=== PATIENT | male | born 1960 | race Caucasian/White ===

== ENCOUNTER 2016-04-26 21:36 | Emergency (ER) | payer OTHER ==
[2016-04-26] MEDS ORDERED: Ondansetron INJ* 2 MG/ML VIAL IV ONE (22:26)
[2016-04-26] MEDS ORDERED: Morphine INJ* 2 MG/ML 1 ML CARPUJECT IV ONE (22:27)
[2016-04-26] MEDS ORDERED: NS 0.9% 1000 ML* 1,000 ML IV ONE (22:43)
--- NOTE | 2016-04-26 23:32 | ED ---
Adult Trauma - HPI Summary HPI Summary: 56 M presents with multiple trauma s/p falling down the stairs. He admits to drinking and states he feel down a flight a stairs and admits to LOC. He is nauseous but denies any vomiting. He was very confused s/p the incident. He admits to a headache. He also admits to left sided rib pain. He denies any abdominal or neck pain or any extremity pain. Pain is worst with movement. He denies any SOB or tachycardia. - History of Current Complaint Chief Complaint: EDChestWallPain Stated Complaint: FALL DOWN STAIRS,HEAD INJURY-ETOH Time Seen by Provider: 04/26/16 21:55 Pain Intensity: 8 - Allergy/Home Medications Allergies/Adverse Reactions: Allergies Allergy/AdvReac Type Severity Reaction Status Date / Time Valproic Acid Allergy Intermediate Hives Verified 12/28/12 21:12 [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 Negative: Abdominal Pain, Vomiting Positive: Headache All Other Systems Reviewed And Are Negative: Yes Physical Exam Triage Information Reviewed: Yes Vital Signs On Initial Exam: Initial Vitals Temp Pulse Resp BP Pulse Ox 96.6 F 67 18 139/89 100 04/26/16 21:38 04/26/16 21:38 04/26/16 21:38 04/26/16 21:38 04/26/16 21:38 Vital Signs Reviewed: Yes Appearance: Positive: Well-Appearing Skin: Positive: Warm, Dry Head/Face: Positive: Normal Head/Face Inspection, Other - no step off, raccoon eyes or reyes sign Eyes: Positive: Normal, EOMI, SONA, Conjunctiva Clear ENT: Positive: Normal ENT inspection, Pharynx normal, TMs normal Neck: Positive: Supple, Nontender Respiratory/Lung Sounds: Positive: Clear to Auscultation, Breath Sounds Present , Other - tender to palpation of left ribs 8-12 on lateral aspect Cardiovascular: Positive: Normal, RRR Abdomen Description: Positive: Soft, Other: - tenderness to LUQ, no rebound tenderness Bowel Sounds: Positive: Present Musculoskeletal: Positive: Strength/ROM Intact - extremities Neurological: Positive: CN Intact II-III - Dora Coma Scale Coma Scale Total: 15 Diagnostics - Vital Signs Vital Signs Temp Pulse Resp BP Pulse Ox 04/26/16 22:38 15 04/26/16 22:05 64 99 04/26/16 22:04 138/88 04/26/16 21:38 96.6 F 67 18 139/89 100 - Laboratory Result Diagrams: 04/26/16 22:15 04/26/16 22:15 Lab Statement: Any lab studies that have been ordered have been reviewed, and results considered in the medical decision making process. - CT brain and neck CT Interpretation: No Acute Changes - no acute intracranial abdnomality, no bleed, prominent Virchow-Bradley, negative for fracture or malaligment, c5-c6 disc bulding possibly with a right paramedian herniated component indenting anteroir aspect of canal and cord, cannot determine if disc herniation realted to trauma or not CT Interpretation Completed By: Radiologist chest, ab, pelvis CT Interpretation: Positive (See Comments) - positive for fracutre of left 7th rib and ninth rib laterally, minor pulmonary contusion and pleural injury adjacent to left ninth rib (small traumactic pleural blebs adjacent to fracture , no gross pneumothorac or pneumomediastinum, negtaive fo abdominal pelvic visceral injury CT Interpretation Completed By: Radiologist Adult Trauma Course/Dx - Course Course Of Treatment: 56 M presents with multiple injuries s/p fall down the stairs and was intoxicated at the time. admits to LOC and nausea, left sided rib pain, denies any abdominal pain but on exam has tenderness to LUQ, CT head and neck which was normal, u/a showed no blood, CT chest/ab: 7th anad 9th rib fracture with minor pulmonary contusion and pleural injury adjace to ninth rib, discussed with dr denis who stated patient should be transferred, explained results to patient who refused to be transferred stating would like to go home and will return if develop racing heart or SOB, explained danger of leaving without going to trauma center and patient understands and still would like to go home, will have follow up with pulmonology, vitals stable at d/c, patient agrees with plan - Diagnoses Differential Diagnosis/HQI/PQRI: Positive: Abrasion(s), Contusion(s), Fracture Provider Diagnoses: Fall down stairs, Head injury, Rib fractures, Pulmonary contusion Discharge - Discharge Plan Condition: Stable Disposition: HOME Prescriptions: oxyCODONE/Acetamin 5/325 MG* [Percocet 5/325 TAB*] 1 tab PO Q6H PRN #20 tab MDD 4 PRN Reason: Pain Patient Education Materials: Pulmonary Contusion (ED), Rib Fracture (ED), Head Injury (ED) Referrals: Ferdinand Méndez MD [Primary Care Provider] - Lissette Jones MD [Medical Doctor] - Additional Instructions: Return to ED if develop racing heart, shortness of breath, cough, fever or any new or worsening symptoms Take deep breath throughout the day and use incentive spirometer to prevent pneumonia Follow up with primary and pulmonology within 3 days Increase fiber intake Take narcotic every 6 hours as needed for pain
[2016-04-26 23:42] LABS: Hematocrit 41 % (42-52); Hemoglobin 13.9 g/dl (14.0-18.0); Mean Corpuscular HGB Conc 34 g/dl (31-36); Mean Corpuscular Hemoglobin 32 pg (27-31); Mean Corpuscular Volume 95 fL (80-94); Mean Platelet Volume 9 um3 (7.4-10.4); Red Cell Distribution Width 13 % (10.5-15)
[2016-04-26] MEDS ORDERED: Ketorolac INJ* 30 MG/ML 1 ML VIAL IV PUSH ONE (23:48)
[2016-04-26 23:56] LABS: BUN/Creatinine Ratio 11.4 (8-20); Calcium 9.2 mg/dL (8.6-10.3); EGFR African American 131.4 (>60); EGFR Non-African American 102.2 (>60); Globulin 2.4 g/dL (2-4); Potassium 3.7 mmol/L (3.5-5.0); Total Bilirubin 0.6 mg/dL (0.2-1.0); Total Protein 6.4 g/dL (6.4-8.9)
[2016-04-27] MEDS ORDERED: Iohexol 300* (CONTRAST) 10 ML SDV IV ONE (00:53)
[2016-04-27 01:18] LABS: Urine Bilirubin Negative (Negative); Urine Glucose Negative (Negative); Urine Nitrite Negative (Negative)
[2016-04-27] MEDS ORDERED: Morphine INJ* 4 MG/ML 1 ML CARPUJECT IV ONE (01:55)
[2016-04-27] MEDS ORDERED: oxyCODONE/Acetamin 5/325 MG* TAB PO ONE (02:53)
[2016-04-27 03:16] VITALS: BP 150/78
--- NOTE | 2016-04-27 07:35 | RAD ---
INDICATION: Loss of consciousness, intoxicated. COMPARISON: There are no prior studies available for comparison. TECHNIQUE: Contiguous axial sections of the brain were obtained from the skull base to the vertex without contrast. FINDINGS: The ventricles, cisterns and sulci are within normal limits. There is a CSF density present in the left temporal lobe inferior to the basal ganglia most consistent with a prominent perivascular space. No other focal abnormalities or mass effect are seen. There is no evidence for hemorrhage. No significant focal osseous abnormality is seen. The visualized portion of the paranasal sinuses and mastoid air cells appear clear. IMPRESSION: NO EVIDENCE FOR ACUTE INTRACRANIAL ABNORMALITY.
--- NOTE | 2016-04-27 07:38 | RAD ---
INDICATION: Fall. Neck injury. COMPARISON: None TECHNIQUE: Noncontrast axial source images was performed from the skull base to the thoracic inlet. Coronal and and sagittal reformatted images were generated. FINDINGS: Vertebrae: There is no fracture or acute focal bony lesion. There are minor arthritic changes with minor narrowing about a some process spurring C3-C4 and C5-C6 with minor anterior vertebral spurring and minor narrowing at C5-C6 with anterior vertebral spur formation and minimal uncinate process spurring. Alignment: The craniocervical junction appears normal. The cervical vertebrae are normally aligned. Central Canal: There is a small central protrusion at C3-C4 and there is broad-based bulging at C5-C6 in addition to a broad-based right paracentral disc. MR imaging is a more sensitive method to evaluate the canal and foramina. Intervertebral disc spaces: The disc spaces are maintained. Brain: The visualized brain appears unremarkable. Soft tissues: The visualized soft tissue elements of the neck are unremarkable. The prevertebral soft tissues appear normal. The lung apices are clear. IMPRESSION: MINOR DEGENERATIVE CHANGES. RIGHT PARACENTRAL CENTRAL DISC HERNIATION C5-C6. SUGGEST MR IMAGING INDICATED.
--- NOTE | 2016-04-27 08:18 | RAD ---
INDICATION: Fall. Chest and abdominal pain. COMPARISON: None TECHNIQUE: Axial source images were obtained from the thoracic inlet to the symphysis pubis following administration of100 mL Omnipaque 300 . Coronal and sagittal reconstructed images were acquired. CHEST FINDINGS: Neck/thyroid: The visualized neck to include the thyroid appear normal. Chest wall: There is a mildly displaced posterior left seventh rib fracture and there is a nondisplaced lateral ninth rib fracture. There is a concave appearance superior endplate of T9. This may be chronic. There is no paravertebral edema There is no supraclavicular, infraclavicular, or axillary lymphadenopathy. Lungs : There are no pulmonary parenchymal masses or infiltrates. There is a tiny pulmonary contusion about the left ninth rib fracture. There is no pneumothorax. The pulmonary interstitium appears normal. There are no endobronchial lesions. Cardiomediastinal structures: The heart is normal in size. There is no pericardial effusion. There is no evidence of aortic aneurysm or dissection. The pulmonary vessels appear normal. There is no mediastinal or hilar adenopathy. There is a patulous GE junction. There is a small amount of air within the mildly dilated esophagus. Pleura : There are no pleural-based masses or effusions. ABDOMINAL/PELVIC FINDINGS: Liver: The liver is normal in size. There are no masses. There is no ductal dilatation. Gallbladder: The gallbladder is partially contracted. There are no specific CT abnormalities. Spleen: The spleen is normal in size. There are no masses. Pancreas: There is no evidence of pancreatic mass or ductal dilatation. Adrenal glands: There is no evidence of adrenal mass. Kidneys: The kidneys are normal in size and position. There are prompt nephrograms and there is prompt excretion bilaterally. There are no renal parenchymal masses. There is no evidence of nephrolithiasis. Adenopathy: There is no evidence of adenopathy by size criteria. Fluid collections: There are no free or localized fluid collections. Vessels:The aorta and IVC appear normal GI tract: There is limited evaluation. No oral contrast was administered. There are no acute CT bowel findings. There is no obstruction. The stomach and small bowel appear mostly normal. The lower GI tract is remarkable for scattered diverticula. The appendix is visualized and appears normal. Pelvic organs: The prostate and seminal vesicles appear normal Bladder: There are no bladder masses. Abdominal and pelvic soft tissues: The extraperitoneal abdominal and pelvic soft tissues appear normal.. Osseous structures: There are no acute osseous findings. IMPRESSION: 1. Left seventh and ninth rib fractures. No pneumothorax. Minimal associated pulmonary contusion at the level of the ninth rib fracture. Mild concave appearance of the superior plate of T9 is technically age indeterminate but may be chronic. 2. No CT evidence of traumatic injury to the solid viscera. No free fluid.
== END 2016-04-27 03:20 | disposition home or self-care (01) ==
LOC: ED 21:36
DX: S09.90XA Unspecified injury of head, initial encounter (principal); S22.42XA Multiple fractures of ribs, left side, initial encounter for closed fracture; S27.321A Contusion of lung, unilateral, initial encounter; F17.210 Nicotine dependence, cigarettes, uncomplicated; J45.909 Unspecified asthma, uncomplicated; W10.9XXA Fall (on) (from) unspecified stairs and steps, initial encounter; Y92.9 Unspecified place or not applicable
CPT/HCPCS: 36415; 70450; 71260; 72125; 74177; 80053; 81003; 85025; 96360; 96365; 96374; 96375; 99285; A9270-GY; J1885; J2270; J2405; Q9967

== ENCOUNTER 2017-10-12 20:46 | Emergency (ER) | payer OTHER ==
[2017-10-12 21:32] VITALS: BP 107/69
--- NOTE | 2017-10-12 22:08 | RAD ---
INDICATION: Right great toe ecchymosis after kicking a door TECHNIQUE: 3 views of the right great toe were obtained. FINDINGS: The visualized bones are normal alignment. Joint spaces appear maintained. No fracture is seen. IMPRESSION: NO EVIDENCE FOR FRACTURE. IF THE PATIENT'S SYMPTOMS PERSIST RECOMMEND FOLLOW-UP IMAGING.
--- NOTE | 2017-10-12 22:43 | UC ---
William Westbrook Rebecca, scribed for Ailyn Jiménez MD on 10/12/17 at 2221 . Lower Extremity/Ankle HPI - HPI Summary HPI Summary: Pt is a 57 y/o M who presents to [facility] c/o R great toe pain and bleeding with his primary concern being the bleeding. Yesterday, he accidentally kicked a door with his R great toe, resulting in immediate bruising. 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 Suspects that his toenail is loose. Associated pain was previously worse, and is currently mild, ranked 3/10. He has not taken any medications for the pain. Denies numbness, tingling. No PMHx DM. Last Tetanus vaccination was within 10 years. - History of Current Complaint Chief Complaint: UCLowerExtremity Stated Complaint: TOE INJURY Time Seen by Provider: 10/12/17 22:17 Hx Obtained From: Patient Onset/Duration: Lasting Days - Since yesterday, Still Present Severity Currently: Mild Pain Intensity: 3 Pain Scale Used: 0-10 Numeric Aggravating Factor(s): Nothing Alleviating Factor(s): Nothing Able to Bear Weight: Yes - Allergies/Home Medications Allergies/Adverse Reactions: Allergies Allergy/AdvReac Type Severity Reaction Status Date / Time divalproex sodium Allergy Hives Verified 10/12/17 21:33 [From Depakote] Home Medications: Home Medications Disulfiram TAB* [Antabuse 250 MG TAB*] 250 mg PO DAILY 10/12/17 [History Confirmed 10/12/17] Gabapentin CAP(*) [Neurontin 300 CAP(*)] 300 mg PO BID 10/12/17 [History Confirmed 10/12/17] Naltrexone TAB* 50 mg PO DAILY 10/12/17 [History Confirmed 10/12/17] PMH/Surg Hx/FS Hx/Imm Hx - Additional Past Medical History Additional PMH: NEGATIVE PMHx: Anticoagulant therapy, DM Cardiovascular History: Atrial Fibrillation Respiratory History: Asthma Other History Of: Negative For: Anticoagulant Therapy - Surgical History Surgical History: Yes Surgery Procedure, Year, and Place: bilat fingertips - Family History Known Family History: Positive: Cardiac Disease - Social History Alcohol Use: None Alcohol Amount: at least 12pack per day Substance Use Type: None Smoking Status (MU): Former Smoker Review of Systems Constitutional: Negative Skin: Bruising - R great toe, Other - R great toe pain and bleeding Eyes: Negative ENT: Negative Respiratory: Negative Cardiovascular: Negative Gastrointestinal: Negative Genitourinary: Negative Motor: Negative Neurovascular: Negative Musculoskeletal: Negative Neurological: Negative Psychological: Negative All Other Systems Reviewed And Are Negative: Yes - Comments Additional Review of Systems Comments: NEGATIVE: Numbness, tingling Physical Exam Vital Signs: Initial Vital Signs Temp 98.1 F 10/12/17 21:25 Pulse 68 10/12/17 21:25 Resp 16 10/12/17 21:25 BP 107/69 10/12/17 21:25 Pulse Ox 100 10/12/17 21:25 Diagnostics - Radiology Toe XR Xray Interpretation: No Acute Changes - NO EVIDENCE FOR FRACTURE. IF THE PATIENT'S SYMPTOMS PERSIST RECOMMEND FOLLOW-UP IMAGING. Physician reviewed this report. Radiology Interpretation Completed By: Radiologist Lower Extremity Course/Dx - Course Course Of Treatment: Patient medications and allergies reviewed this visit. Discharge - Sign-Out/Discharge Documenting (check all that apply): Discharge/Admit/Transfer - Discharge - Discharge Plan Referrals: Ferdinand Méndez MD [Primary Care Provider] - The documentation as recorded by the William arnett Rebecca accurately reflects the service I personally performed and the decisions made by Tino escalante Laura, MD.
== END 2017-10-12 23:00 | disposition home or self-care (01) ==
LOC: UCEAST 20:46
DX: S99.921A Unspecified injury of right foot, initial encounter (principal); J45.909 Unspecified asthma, uncomplicated; Z88.8 Allergy status to other drugs, medicaments and biological substances; W22.09XA Striking against other stationary object, initial encounter; Y92.9 Unspecified place or not applicable; Z87.891 Personal history of nicotine dependence
CPT/HCPCS: 99213; G0463

== ENCOUNTER 2018-01-04 12:42 | Emergency (ER) | payer OTHER ==
[2018-01-04 13:21] VITALS: BP 127/82
--- NOTE | 2018-01-04 13:35 | UC ---
Throat Pain/Nasal Saqib HPI - HPI Summary HPI Summary: Patient is a 57 y/o male who presents to the c/o sore throat. He states his girlfriend has strep throat with bad fevers and was on a 10 day antibiotics course. Patient was taking care of her and was in close contact with her, sleeping in the same bed. However, she still has symptoms after finishing the course. This morning he woke up with a sore throat and sinus congestion. He also notes that his right tonsil is enlarged, which is not unusual for him, and his left nostril is irritated. Patient has chronic tonsil issues, and has not had them removed. He denies any ear pain. Patient always has allergies and states they have been acting up lately, since hes been petting cats and had dairy last night. He takes Zyrtec and uses an inhaler for these symptoms. He works as a mcgrath and a musician. Patient is an alcoholic, and hasnt had a drink in 9 months. He also recently quit smoking. Patient has a prior history of TB as a child. He has not taken any OTC medications for his symptoms. Patient s medication reviewed this visit. - History of Current Complaint Chief Complaint: UCGeneralIllness Stated Complaint: SORE THROAT Time Seen by Provider: 01/04/18 13:25 Hx Obtained From: Patient Onset/Duration: Gradual Onset, Lasting Hours - Last night, Still Present Severity: Mild Pain Intensity: 1 Pain Scale Used: 0-10 Numeric Cough: None Associated Signs & Symptoms: Positive: Sinus Discomfort. Negative: Fever Related History: Other (Noted In Comments) - Exposure to strep - Allergies/Home Medications Allergies/Adverse Reactions: Allergies Allergy/AdvReac Type Severity Reaction Status Date / Time divalproex sodium Allergy Hives Verified 01/04/18 13:03 [From [facility]] Home Medications: Home Medications Albuterol HFA INHALER* [Ventolin HFA Inhaler*] 1 puff INH DAILY PRN 01/04/18 [ History Confirmed 01/04/18] Nicotine Polacrilex [Nicotine Gum] 2 mg PO DAILY PRN 01/04/18 [History Confirmed 01/04/18] PMH/Surg Hx/FS Hx/Imm Hx Previously Healthy: Yes Endocrine History: Other Other Endocrine History: NEGATIVE: DM Cardiovascular History: Atrial Fibrillation Respiratory History: Asthma Psychological History: Depression, Other - Alcohol history Other Psychological History: Substance use disorder Other History Of: Negative For: Anticoagulant Therapy - Surgical History Surgical History: Yes Surgery Procedure, Year, and Place: bil fingertips - Family History Known Family History: Positive: Cardiac Disease - Social History Occupation: Employed Part-time Lives: With Family Alcohol Use: None Alcohol Amount: none since April Substance Use Type: Other Smoking Status (MU): Former Smoker Review of Systems Constitutional: Negative - Fever ENT: Negative - Ear pain, Sore Throat, Sinus Congestion, Other - Right tonsil enlarged, left nostril irritated All Other Systems Reviewed And Are Negative: Yes Physical Exam - Summary Physical Exam Summary: Vital Signs Reviewed: Yes A+Ox3, no distress Eyes: Conjunctiva Clear, SONA. EOM intact and full ENT: Hearing grossly normal TM x 2 clear, + mild PND, mild fullness tonsils bilateral, mmmoist, uvula midline, no exudate Neck: Positive: Supple Respiratory: Positive: No respiratory distress, No accessory muscle use + CTA throughout no w/r Cardiovascular: RRR nl s1, s2 no m/r CBT <2 sec abd soft + BS nt/nd no guarding, no distension Musculoskeletal Exam: DAVIDSON x 4 without difficulty Strength Intact, ROM Intact Neurological: Positive: Alert, + sensation throughout Psychological: Positive: Normal Response To Family Skin: Positive: no rash, no ecchymosis Triage Information Reviewed: Yes Vital Signs: Initial Vital Signs Temp 97.7 F 01/04/18 13:06 Pulse 62 01/04/18 13:06 Resp 20 01/04/18 13:06 BP 127/82 01/04/18 13:06 Pulse Ox 98 01/04/18 13:06 Throat Pain/Nasal Course/Dx - Course Course Of Treatment: Patient presents with sore throat since last evening. Patient's significant other with recent diagnosis of treatment for strep throat. Patient's vital signs are stable. Patient's taken nothing for pain. On exam patient with mild erythema and fullness of his tonsils. Uvula midline. No exudate. Strep is negative. Discussed with patient with viral treatment. Motrin/Tylenol. Swish and spit warm salt water. Hydrate. Secretion precaution. - Differential Dx/Diagnosis Provider Diagnoses: Pharyngitis Discharge - Sign-Out/Discharge Documenting (check all that apply): Patient Departure - Discharge All imaging exams completed and their final reports reviewed: No Studies - Discharge Plan Condition: Stable Disposition: HOME Patient Education Materials: Pharyngitis (ED) Referrals: Ferdinand Méndez MD [Primary Care Provider] - Additional Instructions: - Okay to alternate ibuprofen (Advil, Motrin) and Tylenol every 3 hours for pain. Take with food. Do NOT take for more than 4-5 days - Okay to gargle and spit every 4 hours as needed for pain - Stay well hydrated - frequent sips of cold fluids will be soothing to your throat (popsicles, jello, ice cream, ice water). Avoid excess caffeine until your symptoms have resolved. - Do not share eating, drinking utensils. Throw out your toothbrush when your symptoms resolved -Throat infections are spread by oral secretions - do not share eating or drinking utensils until you symptoms are resolved. Clean items that may get your secretions such as cell phones, ipads, computer mouse, television remotes Once you start to feel better, change your toothbrush and your pillowcase. - Contact your doctor to arrange a follow-up appointment as needed - Billing Disposition and Condition Condition: STABLE Disposition: Home - Attestation Statements Document Initiated by Mattieibe: Yes Documenting Scribe: Isha Villasenor Provider For Whom Nicanor is Documenting (Include Credential): Ailyn Jiménez MD Scribe Attestation: Isha Westbrook, scribed for Ailyn Jiménez MD on 01/05/18 at 0715. Scribe Documentation Reviewed: Yes Provider Attestation: The documentation as recorded by the Isha arnett accurately reflects the service I personally performed and the decisions made by me, Ailyn Jiménez MD
== END 2018-01-04 13:50 | disposition home or self-care (01) ==
LOC: UCEAST 12:42
DX: J02.9 Acute pharyngitis, unspecified (principal); J45.909 Unspecified asthma, uncomplicated; Z88.8 Allergy status to other drugs, medicaments and biological substances; Z87.891 Personal history of nicotine dependence
CPT/HCPCS: 87651; 99211; G0463

== ENCOUNTER 2018-01-28 01:53 | Emergency (ER) | payer OTHER ==
[2018-01-28] MEDS ORDERED: Ondansetron INJ* 2 MG/ML VIAL ONE (03:43)
[2018-01-28] MEDS ORDERED: Ondansetron INJ* 2 MG/ML VIAL IV ONE (03:46)
--- NOTE | 2018-01-28 04:04 | ED ---
Substance Abuse/Use - HPI Summary HPI Summary: 57 year old M presenting to [facility] accompanied by male friend with a chief complaint of vomiting x4 since four hours ago. Symptoms aggravated by nothing. Symptoms alleviated by nothing. Patient reports nausea. Patient denies abdominal pain. Patient has been taking Antabuse since April 2017. Last night , patient admits to drinking 2 beers and half a shot of tequila. - History Of Current Complaint Chief Complaint: EDSubstanceAbuse Stated Complaint: OVERDOSE Time Seen by Provider: 01/28/18 02:55 Hx Obtained From: Patient Aggravating Factor(s): Nothing Alleviating Factor(s): Nothing Associated Signs And Symptoms: Negative - Abdominal pain, Nausea, Vomiting - Allergies/Home Medications Allergies/Adverse Reactions: Allergies Allergy/AdvReac Type Severity Reaction Status Date / Time divalproex sodium Allergy Hives Verified 01/04/18 13:03 [From Depakote] Home Medications: Home Medications Diltiazem TAB* 240 mg PO DAILY 01/28/18 [History Confirmed 01/28/18] PMH/Surg Hx/FS Hx/Imm Hx Previously Healthy: No Endocrine/Hematology History: Denies: Hx Anticoagulant Therapy, Hx Diabetes, Hx Thyroid Disease Cardiovascular History: Denies: Hx Hypertension Respiratory History: Reports: Hx Asthma Denies: Hx Chronic Obstructive Pulmonary Disease (COPD) GI History: Denies: Hx Ulcer History: Denies: Hx Dialysis, Hx Renal Disease - Surgical History Surgery Procedure, Year, and Place: bilat fingertips Infectious Disease History: Yes Infectious Disease History: Reports: Hx Tuberculosis - as a child/was treated Denies: Hx Hepatitis, Hx Human Immunodeficiency Virus (HIV), History Other Infectious Disease, Traveled Outside the [place] in Last 30 Days - Family History Known Family History: Positive: Cardiac Disease - Social History Alcohol Use: None Alcohol Amount: none since April 2017 (occasionally in January 2018) Hx Substance Use: Yes Substance Use Type: Reports: Marijuana, Other Hx Tobacco Use: Yes Smoking Status (MU): Former Smoker Review of Systems Positive: Vomiting, Nausea. Negative: Abdominal Pain Positive: Other - admits to drinking 2 beers and half a shot of tequila All Other Systems Reviewed And Are Negative: Yes Physical Exam - Summary Physical Exam Summary: GENERAL: Patient is a well-developed and nourished M who is lying comfortable in the stretcher. Patient is not in any acute respiratory distress. HEAD AND FACE: Normocephalic EYES: PERRLA, EOMI x 2. EARS: Hearing grossly intact. MOUTH: Oropharynx within normal limits. NECK: Supple, trachea is midline, no adenopathy, no JVD, no carotid bruit. CHEST: Symmetric, no tenderness at palpation LUNGS: Clear to auscultation bilaterally. No wheezing or crackles. CVS: Regular rate and rhythm, S1 and S2 present, no murmurs or gallops appreciated. ABDOMEN: Soft, non-tender. Bowel sounds are normal. No abdominal abnormal pulsations. EXTREMITIES: Full ROM in all major joints, no edema, no cyanosis or clubbing. NEURO: Alert and oriented x 3. No acute neurological deficits. Speech is normal and follows commands. SKIN: Dry and warm Triage Information Reviewed: Yes Vital Signs On Initial Exam: Initial Vitals Temp Pulse Resp BP Pulse Ox 97.0 F 88 20 120/62 98 01/28/18 01:59 01/28/18 01:59 01/28/18 01:59 01/28/18 01:59 01/28/18 01:59 Vital Signs Reviewed: Yes Diagnostics - Vital Signs Vital Signs Temp Pulse Resp BP Pulse Ox 01/28/18 01:59 97.0 F 88 20 120/62 98 - Laboratory Result Diagrams: 01/28/18 04:56 01/28/18 04:55 Lab Statement: Any lab studies that have been ordered have been reviewed, and results considered in the medical decision making process. - Radiology CXR Radiology Interpretation Completed By: ED Physician - No acute process. Pending official report. Re-Evaluation - Re-Evaluation First Eval Re-Evaluation Time: 06:18 Comment: patient is feeling better but has some soreness in his throat from vomiting so much Course/Dx - Course Course Of Treatment: 57 year old M presenting to [facility] accompanied by male friend with a chief complaint of vomiting x4 since four hours ago. Workup is remarkable for low magnesium at 1.6 and potassium at 3.3, which were repleted here in the emergency Room. He is much improved from vomiting stand point after anti-nausea medication. Patient is complaining of sore throat from excessive vomiting. CXR shows no acute process. The patient will be discharged with prescription for Zofran. I discussed results with patient and the patient reports feeling better. The patient is hemodynamically stable and safe for discharge. Strict return precautions given and the patient will otherwise follow up with the patients PCP. - Diagnoses Provider Diagnoses: Vomiting Discharge - Sign-Out/Discharge Documenting (check all that apply): Patient Departure - Discharge - Discharge Plan Condition: Stable Disposition: HOME Prescriptions: Ondansetron ODT TAB* [Zofran 4 MG Odt TAB*] 4 mg PO Q6H PRN #9 tab.odt PRN Reason: Nausea Patient Education Materials: Disulfiram (By mouth) Referrals: Ferdinand Mnédez MD [Primary Care Provider] - 3 Days Additional Instructions: Follow up with your primary care physician in 1-3 days. RETURN TO THE EMERGENCY DEPARTMENT FOR CHANGING OR WORSENING SYMPTOMS. - Billing Disposition and Condition Condition: STABLE Disposition: Home - Attestation Statements Document Initiated by Scribe: Yes Documenting Scribe: Yaquelin Meyer Provider For Whom Nicanor is Documenting (Include Credential): Rehan Bailey MD Scribe Attestation: Yaquelin Westbrook, scribed for Rehan Bailey MD on 01/29/18 at 0324. Scribe Documentation Reviewed: Yes Provider Attestation: The documentation as recorded by the Yaquelin arnett accurately reflects the service I personally performed and the decisions made by , Rehan Bailey MD
[2018-01-28] MEDS ORDERED: NS 0.9% 1000 ML* 1,000 ML IV ONE (04:16)
[2018-01-28] MEDS ORDERED: Metoclopramide IV* 5 MG/ML 2 ML VIAL IV ONE (04:16)
[2018-01-28] MEDS ORDERED: Pantoprazole IV* 40 MG IV ONE (04:16)
[2018-01-28 05:01] LABS: ABS Basophils 0 10^3/ul (0-0.2); ABS Eosinophils 0 10^3/ul (0-0.6); ABS Lymphocytes 0.4 10^3/ul (1.0-4.8); ABS Monocytes 1.1 10^3/ul (0-0.8); ABS Neutrophils 11.7 10^3/ul (1.5-7.7); ABS Nucleated RBC 0 10^3/ul; Eosinophil % 0 % (0-6); Hematocrit 37 % (42-52); Hemoglobin 12.9 g/dl (14.0-18.0); Lymphocyte % 2.9 % (25-47); Mean Corpuscular HGB Conc 35 g/dl (31-36); Mean Corpuscular Hemoglobin 32 pg (27-31); Mean Corpuscular Volume 93 fL (80-94); Mean Platelet Volume 8.1 um3 (7.4-10.4); Nucleated Red Blood Cells % 0; Platelet Count 226 10^3/ul (150-450); Red Blood Count 3.98 10^6/ul (4.00-5.40); Red Cell Distribution Width 14 % (10.5-15); White Blood Count 13.3 10^3/ul (3.5-10.8)
[2018-01-28 05:10] LABS: INR 0.98 (0.77-1.02)
[2018-01-28 05:44] LABS: EGFR Non-African American 74.1 (>60)
[2018-01-28] MEDS ORDERED: Potassium Chlor TAB* 20 MEQ TAB.ER PO ONE (06:06)
[2018-01-28] MEDS ORDERED: Magnesium Sulfate 2 GM IV* 2 GM/50 ML BAG IVPB ONE (06:08)
[2018-01-28] MEDS ORDERED: Ketorolac INJ* 30 MG/ML 1 ML VIAL IV PUSH ONE (06:18)
[2018-01-28 07:12] VITALS: BP 140/81
--- NOTE | 2018-01-28 07:58 | RAD ---
HISTORY: cough COMPARISONS: June 14, 2016 VIEWS: 3: frontal dual-energy view of the chest FINDINGS: CARDIOMEDIASTINAL SILHOUETTE: The cardiomediastinal silhouette is normal. LAUREN: The lauren are normal. PLEURA: The costophrenic angles are sharp. No pleural abnormalities are noted. LUNG PARENCHYMA: There is hyperinflation. The lung parenchyma is otherwise clear. ABDOMEN: The upper abdomen is clear. There is no subphrenic gas. BONES AND SOFT TISSUES: No bone or soft tissue abnormalities are noted. OTHER: None. IMPRESSION: HYPERINFLATION. NO ACTIVE CARDIOPULMONARY DISEASE. R0
== END 2018-01-28 07:13 | disposition home or self-care (01) ==
LOC: ED 01:53
DX: R11.2 Nausea with vomiting, unspecified (principal); R05 Cough; Z88.8 Allergy status to other drugs, medicaments and biological substances; Z87.891 Personal history of nicotine dependence
CPT/HCPCS: 36415; 71045; 80053; 80320; 83735; 85025; 85610; 85730; 96361; 96365; 96375; 99283; A9270-GY; G0480; J1885; J2405; J2765; J3475

== ENCOUNTER 2020-07-28 13:00 | Inpatient (IN) ==
[2020-07-30] MEDS ORDERED: Buffered Lidocaine 1% SYRIN 1 ml INTRADERM ONE (06:00)
[2020-07-30] MEDS ORDERED: Lactated Ringers 1000 ml BAG 1,000 ML IV SCH (06:00)
[2020-07-30] MEDS ORDERED: Naloxone 0.4 mg VIAL 0.4 mg/ml 1 ml VIAL IV PRN (07:55)
[2020-07-30] MEDS ORDERED: HYDROmorphone 1 MG/1 ML SYRINGE IV PRN (07:55)
[2020-07-30] MEDS ORDERED: diPHENhydraMINE IV 50 MG/ML 1 ml VIAL (BENADRYL) IV PRN ×2 (07:55→16:16)
[2020-07-30] MEDS ORDERED: Ondansetron 4 mg VIAL 2 MG/ML 2 ml VIAL IV PRN (07:55)
[2020-07-30] MEDS ORDERED: Midazolam 2 mg/2 ml VIAL 1 mg/ml 2 ml VIAL (2 mg) ONE (13:27)
[2020-07-30] MEDS ORDERED: Ketamine HCL 50 mg/ml 10 ml VIAL (500 MG) ONE (13:27)
[2020-07-30] MEDS ORDERED: Glycopyrrolate IV 0.2 MG/ML 1 ML VIAL ONE ×2 (13:28→16:01)
[2020-07-30] MEDS ORDERED: Lidocaine 2% PF 5 ML VIAL ONE (13:28)
[2020-07-30] MEDS ORDERED: Propofol 10 MG/ML 20 ML BTL ONE (13:28)
[2020-07-30] MEDS ORDERED: Propofol 10 mg/ml 100 ML BTL 100 ML ONE (14:54)
[2020-07-30] MEDS ORDERED: EPHEDrine (Pressors) 50 MG/ML VIAL ONE (16:04)
[2020-07-30] MEDS ORDERED: Phenylephrine IV 10 MG/ML 1 ml VIAL ONE (16:06)
[2020-07-30] MEDS ORDERED: Ondansetron ODT 4 mg TAB 4 MG TAB PO PRN (16:16)
[2020-07-30] MEDS ORDERED: diPHENhydraMINE 25 mg TAB PO PRN (16:16)
[2020-07-30] MEDS ORDERED: Magnesium Hydroxide LIQ 30 ML UDC PO PRN (16:16)
[2020-07-30] MEDS ORDERED: Lactulose 30 ml UDC PO PRN (16:16)
[2020-07-30] MEDS ORDERED: Morphine 2 MG/ML SYRINGE IV PRN (16:16)
[2020-07-30] MEDS: Lactated Ringers 1000 ml BAG 1,000 ML IV SCH (20:30)
[2020-07-30] MEDS ORDERED: diPHENhydraMINE 25 mg TAB PO SCH (21:00)
[2020-07-30] MEDS: Magnesium Hydroxide LIQ 30 ML UDC PO SCH (22:01)
[2020-07-30] MEDS: oxyCODONE/Acetamin 5/325 mg TAB PO PRN (22:06)
[2020-07-30] MEDS ORDERED: Albuterol HFA INHALER 8 gm MDI INH PRN (22:26)
[2020-07-30] MEDS: Ondansetron 4 mg VIAL 2 MG/ML 2 ml VIAL IV PRN (23:09)
[2020-07-30] MEDS: ceFAZolin 1 GM ADVAN 1 GM in NS 0.9% 50 ML 50 ML IVPB SCH (23:23)
[2020-07-31] MEDS: oxyCODONE/Acetamin 5/325 mg TAB PO PRN ×3 (02:24→15:10)
[2020-07-31 05:33] LABS: Hematocrit 30 % (42-52); Hemoglobin 10.4 g/dL (14.0-18.0); Mean Platelet Volume 8.7 fL (7.4-10.4); Platelet Count 182 10^3/uL (150-450)
[2020-07-31 05:48] LABS: Calcium 8.4 mg/dL (8.6-10.3); EGFR African American 120.1 (>60); EGFR Non-African American 99.3 (>60); Potassium 4.1 mmol/L (3.5-5.0)
[2020-07-31] MEDS: Lactated Ringers 1000 ml BAG 1,000 ML IV SCH (07:02)
[2020-07-31] MEDS: ceFAZolin 1 GM ADVAN 1 GM in NS 0.9% 50 ML 50 ML IVPB SCH ×2 (07:03→15:13)
[2020-07-31] MEDS: Magnesium Hydroxide LIQ 30 ML UDC PO SCH (08:08)
[2020-07-31] MEDS: Ondansetron 4 mg VIAL 2 MG/ML 2 ml VIAL IV PRN (08:48)
[2020-07-31] MEDS ORDERED: Pneumococcal Vac 23-Polyvalent IM ONE (09:00)
[2020-07-31] MEDS ORDERED: Vitamin THERAPEUTIC TAB PO SCH (09:00)
[2020-07-31 11:40] VITALS: BP 121/59
[2020-08-03] MEDS ORDERED: Scopolamine PATCH Remove NOTE PATCH OFF SCH (09:00)
== END 2020-07-31 16:25 | disposition home health service (06) | DRG 301 ==
LOC: INTOOBSV 07-30 12:52 → AA 07-30 12:52 → SSU 07-30 16:16
PROVIDERS: ADMIT Orthopaedic Surgery Adult Reconstructive Orthopaedic Surgery; ATTEND Orthopaedic Surgery Adult Reconstructive Orthopaedic Surgery